=== PATIENT | male | born 1995 | race Caucasian/White ===

== ENCOUNTER 2017-09-09 00:57 | Emergency (ER) | payer OTHER ==
[~2017-09-09] VITALS: Ht 180.3 cm; Wt 63.5 kg
--- NOTE | ~2017-09-09 | EKG ---
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 : 1995 Requested By: Laura Sow Order Number: [id number] MD: Lev Philip Measurements Intervals [place] Rate: 51 P: 74 MN: 174 QRS: 56 QRSD: 91 T: 45 QT: 453 QTc: 418 Interpretive Statements Sinus bradycardia ST elev, normal early repol pattern No previous ECG available for comparison Electronically Signed On 09-11-2017 7:51:01 CDT by Lev Philip [email or web address] <ELECTRONICALLY SIGNED> By: Lev Philip MD, [facility] 09/11/17 [phone] Lev Philip MD, FACC /EPI
[2017-09-09 02:07] LABS: ABSOLUTE NEUTROPHILS 4.4 thou/uL (1.4-8.2); BASOPHILS 1.3 % (0.0-2.0); EOSINOPHILS 1.5 % (0.0-3.0); HEMATOCRIT 38.9 % (42.0-52.0); HEMOGLOBIN 13.2 gm/dL (14.0-18.0); LYMPHOCYTES 29.1 % (24.0-44.0); MCHC 33.9 g/dL (28.0-37.0); MCV 94.3 fL (80.0-100.0); MONOCYTES 11.5 % (1.0-8.0); PLATELET COUNT 243 thou/uL (150-400); POLYS 56.6 % (36.0-66.0); RBC 4.13 mil/uL (4.50-6.00); RDW 13.1 % (10.5-14.5); WBC 7.9 thou/uL (4.0-11.0)
[2017-09-09 02:10] LABS: ANION GAP 10 mmol/L (7-16); BUN 23 mg/dL (7-18); CALCIUM 9.1 mg/dL (8.5-10.1); CHLORIDE 102 mmol/L (98-107); CO2 28 mmol/L (21-32); CREATININE 1.1 mg/dL (0.7-1.3); GLUCOSE 109 mg/dL (74-106); POTASSIUM 3.9 mmol/L (3.5-5.1); SODIUM 140 mmol/L (136-145)
[2017-09-09 02:19] LABS: DIRECT BILIRUBIN < 0.1 mg/dL (<0.1-0.3); LIPASE 120 U/L (73-393); SGOT 25 U/L (15-37); SGPT 38 U/L (30-65); TOTAL BILIRUBIN 0.3 mg/dL (<0.1-1.0); TOTAL PROTEIN 7.5 g/dL (6.4-8.2); TROPONIN-I <0.06 ng/mL (<0.06)
[2017-09-09 03:59] VITALS: BP 96/43
== END 2017-09-09 03:59 | disposition home or self-care (01) ==
LOC: ER 00:57
PROVIDERS: Emergency Medicine
DX: K21.9 Gastro-esophageal reflux disease without esophagitis (principal); F17.210 Nicotine dependence, cigarettes, uncomplicated

== ENCOUNTER 2017-10-10 06:58 | Emergency (ER) | payer OTHER ==
[~2017-10-10] VITALS: Ht 175.3 cm; Wt 80.3 kg
[2017-10-10 09:09] VITALS: BP 112/57
== END 2017-10-10 09:10 | disposition home or self-care (01) ==
LOC: ER 06:58
DX: S80.212A Abrasion, left knee, initial encounter (principal); S50.312A Abrasion of left elbow, initial encounter; S40.212A Abrasion of left shoulder, initial encounter; M25.552 Pain in left hip; V28.0XXA Motorcycle driver injured in noncollision transport accident in nontraffic accident, initial encounter; Y93.89 Activity, other specified; Y92.89 Other specified places as the place of occurrence of the external cause; Y99.8 Other external cause status